=== PATIENT | male | born 1955 | race Caucasian/White ===

== ENCOUNTER 2023-03-16 08:46 | Inpatient (IN) ==
--- NOTE | 2023-03-10 12:07 | Anesthesiology Consultation ---
Date of Service March 10, 2023 Assessment & Plan (1) Encounter for pre-operative examination: Chart Review Chart Review: Acceptable Risk for Surgery and Patient NOT seen in Pre Admission Testing -COVID screening: Per PAT nursing assessment on 03/10/23. No known COVID-19 positive contacts or current COVID-19 related symptoms. Travel screen negative. Patient vaccinated for Covid. At surgeon discretion if preop Covid testing being done. History Surgery Operation Date: 03/16/23 09:30 Proposed Procedures p TURP (Transurethral Resection Prostate) - Cedrick Srinivasan MD Height/Weight Height: 5 ft 8 in Weight: 86.183 kg Allergies Allergy/AdvReac Type Severity Reaction Status Date / Time ciprofloxacin Allergy Unknown blisters, Unverified 03/10/23 09:02 rash amoxicillin AdvReac Unknown Gastrointestinal Unverified 03/10/23 09:02 Upset Penicillins AdvReac Unknown Gastrointestinal Unverified 03/10/23 09:02 Upset myrbetriq AdvReac Unknown Gastrointestinal Uncoded 03/10/23 09:02 Upset statin AdvReac Unknown Gastrointestinal Uncoded 03/10/23 09:02 Upset Medications Home Medications Medication Instructions Recorded Confirmed Last Taken No Known Home Medications 03/10/23 03/10/23 Unknown Past Medical History Medical History Bipolar disorder Pt denies bipolar disorder since undergoing "shock therapy BPH (benign prostatic hyperplasia) COPD (chronic obstructive pulmonary disease) Fibromyalgia History of anesthesia reaction woke up during nasal surgery History of hyperlipidemia resolved per pt History of hypertension resolved per pt Past Family History Family History Other No family history of adverse response to anesthesia Past Surgical History Surgical History History of cataract surgery History of colonoscopy History of cystoscopy History of nasal surgery History of removal of cyst Social History Smoking Status: Former smoker Do You Dip or Chew Tobacco: No Smoking End Date: 25 years ago Hx Alcohol Use: Yes alcohol intake frequency: a few times a month Hx Substance Use: No substance use type: does not use Testing Laboratory Results 03/09/23= WBC: 7.7 H/H: 15.5/45.5 PLATELETS: 223 SODIUM: 139 POTASSIUM: 4.1 CHLORIDE: 108 CO2: 29 BUN: 34 CREATININE: 1.0 GLUCOSE: 95 URINE CULTURE: No growth after 24 hours Electrocardiogram Date: 03/09/23 Findings: + NSR @ (89 bpm) Clinical correlation needed per confirming provider Chest X-Ray Date: 03/09/23 Findings: + NAD Stable mild emphysematous appearing changes with scarring at the right lung base. No focal consolidations, effusions, pneumothoraces. Heart size and vascular markings are appropriate for degree of inspiration and technique. Slight dextroscoliosis and degenerative changes are noted in the mid thoracic region, bony structures are otherwise unremarkable.
[~2023-03-16 08:46] MED LIST: ceFAZolin 2000MG 2,000 MG/15 ML SYR IV SCH
[2023-03-16] MEDS: LR 15ML/HR IV SCH ×2 (09:55→16:47)
[2023-03-16] MEDS ORDERED: ATROPINE SULFATE 0.1 MG/ML 10ML SYR IV PRN (10:27)
[2023-03-16] MEDS ORDERED: ONDANSETRON INJ 2 MG/ML 2 ML VIAL IV PRN (10:27)
[2023-03-16] MEDS ORDERED: HYDROmorphone INJ 1 MG/ML SYRINGE IV PRN (10:27)
[2023-03-16] MEDS ORDERED: ePHEDrine sulfate 50 MG/ML AMP IV PRN (10:27)
[2023-03-16] MEDS ORDERED: BELLADONNA/OPIUM SUPP 60 MG SUPP PR PRN (10:36)
[2023-03-16] MEDS ORDERED: ACETAMINOPHEN 325 MG TAB PO PRN ×3 (10:36→17:12)
--- NOTE | 2023-03-16 10:36 | History & Physical Bridge Note ---
Date of Service March 16, 2023 History & Physical Bridge Note I have examined the patient, reviewed the History & Physical and in the interval since the performance of the History & Physical I have noted the following changes of clinical significance: no changes noted
[2023-03-16] MEDS ORDERED: fentaNYL citrate PF 100 MCG/2 ML VIAL ONE (10:54)
[2023-03-16] MEDS ORDERED: MIDAZOLAM HCL 1 MG/ML 2ML VIAL ONE (10:54)
[2023-03-16] MEDS ORDERED: DEXAMETHASONE SOD INJ 4 MG/ML VIAL ONE (10:54)
[2023-03-16] MEDS ORDERED: PROPOFOL IV EMULSION 10 MG/ML 20 ML VIAL IV ONE (10:54)
[2023-03-16] MEDS ORDERED: LIDOCAINE 2% 2 ML VIAL/AMP(20MG/ML) INFIL ONE (10:54)
[2023-03-16] MEDS ORDERED: ONDANSETRON INJ 2 MG/ML 2 ML VIAL ONE (10:54)
--- NOTE | 2023-03-16 12:15 | Operative Report ---
[facility] Post Operative Report Pre & Post Diagnosis Operation Date: 03/16/23 10:50 Pre-Op Diagnosis: Benign Prostatic Hyperplasia with Obstruction/Lower urinary tract symptoms Post-Op Diagnosis: Benign Prostatic Hyperplasia with Obstruction/Lower urinary tract symptoms I identified the patient and participated in the time-out.: Yes Procedure Operation Date: 03/16/23 10:50 Actual Procedures p Transurethral Resection of the Prostate - Cedrick Srinivasan MD Surgeon Cedrick Srinivasan MD Ferry Engineer None Estimated Blood Loss 20 Findings Consistent with Post-Op Diagnosis Specimens Prostate chips Drains 22 [place]ic three-way Mercer catheter per urethra, continuous bladder irrigation running Anesthesia Type General Complications none Disposition Accompanied Patient To Recovery: Yes Disposition: Recovery Room Indications This is a 67-year-old male recently seen in the urology office for elevated PSA and lower urinary tract symptoms/BPH. Prostate biopsy was negative for malignancy. He is being brought to the OR today for transurethral resection of the prostate to help with his bladder outlet. Description of Procedure The patient was identified in the holding area and informed consent was confirmed. He was taken to the operating room where general anesthesia was initiated. He was placed in the dorsal lithotomy position with all pressure points appropriately padded. He was prepped and draped in the usual sterile fashion and a preoperative timeout was performed. A well-lubricated resectoscope was inserted per urethra and panendoscopy was performed. His pendulous urethra was normal with no strictures or mucosal abnormalities. The prostate was moderately enlarged with some intravesical protrusion. Ureteral orifices were in orthotopic position, somewhat removed from the bladder neck. The prostate was systematically resected, starting with the median lobe, taking resection down until the capsular fibers could be identified. The proximal resection was up to the bladder neck, taking care not to injure the ureteral orifices. The distal resection extended to the verumontanum, taking care to avoid the sphincter. The lateral lobes were then resected down to the level of the capsule. Meticulous hemostasis was obtained using the button electrode. The prostate chips were evacuated from the bladder and sent for pathologic analysis. A final inspection demonstrated no injury to the ureteral orifices or the sphincter, no remaining prostate chips, and good hemostasis at low pressure. A 22 Fr 3-way mercer catheter was placed. The balloon was inflated with 20 mL of normal saline and the catheter was attached to gravity drainage with continuous irrigation running. The patient was then awakened from anesthesia and was brought to the PACU in stable condition. I attest to the content of the Intraoperative Record and any orders documented therein. Any exceptions are noted below.
[2023-03-16] MEDS: fentaNYL citrate PF 100 MCG/2 ML VIAL IV PRN ×4 (12:31→13:04)
[2023-03-16] MEDS ORDERED: DOCUSATE SODIUM 100 MG CAP PO PRN (13:08)
--- NOTE | 2023-03-16 14:36 | Anesthesiology Progress Note ---
Date of Service March 16, 2023 Anesthesia Post Procedure Vital Signs Vital Signs: Temp Pulse Pulse Resp BP Pulse Ox O2 Del Method 03/16/23 14:00 59 L 14 114/84 95 Room Air 03/16/23 13:45 60 14 140/94 95 Room Air 03/16/23 13:30 36.2 C L 94 H 16 145/92 H 94 Room Air 03/16/23 13:15 59 L 12 156/98 H 95 Room Air 03/16/23 13:05 60 12 155/87 H 95 Room Air 03/16/23 12:55 65 12 155/84 H 95 Room Air 03/16/23 12:45 56 L 12 122/93 100 Room Air 03/16/23 12:35 57 L 14 162/94 H 97 Oxymask 03/16/23 12:26 36.5 C 62 16 151/85 H 98 Oxymask 03/16/23 09:28 36.6 C 67 20 142/92 H 97 Room Air O2 Flow Rate 03/16/23 14:00 03/16/23 13:45 03/16/23 13:30 03/16/23 13:15 03/16/23 13:05 03/16/23 12:55 03/16/23 12:45 03/16/23 12:35 7 03/16/23 12:26 7 03/16/23 09:28 Pain Intensity Penis: Pain Intensity: 3 Transfer of Care Handoff Completed per policy Notes Mental Status: alert / awake / arousable and participated in evaluation Patient Amnestic to Procedure: Yes Nausea / Vomiting: adequately controlled Pain: adequately controlled Airway Patency, RR, SpO2: stable & adequate BP & HR: stable & adequate Hydration State: stable & adequate Anesthetic Complications: no major complications apparent and Pt Satisfied with anesthetic care
[2023-03-16] MEDS ORDERED: PHENAZOPYRIDINE HCL 200 MG TAB PO PRN (17:11)
[2023-03-16] MEDS ORDERED: IBUPROFEN 200 MG TAB PO PRN (17:11)
[2023-03-16] MEDS: LACTATED RINGER'S 1,000 ML IV SCH (17:38)
[2023-03-16] MEDS: oxyCODONE HCL IR 5 MG TAB (IMMEDIATE RELEASE) PO PRN (17:51)
[2023-03-16] MEDS: ceFAZolin 1000MG 1,000 MG/7.5 ML SYR IV SCH (19:57)
[2023-03-17] MEDS: LACTATED RINGER'S 1,000 ML IV SCH ×2 (00:19→08:46)
[2023-03-17] MEDS: ceFAZolin 1000MG 1,000 MG/7.5 ML SYR IV SCH (02:14)
[2023-03-17] MEDS: oxyCODONE HCL IR 5 MG TAB (IMMEDIATE RELEASE) PO PRN (02:14)
--- NOTE | 2023-03-17 07:33 | Urology Progress Note ---
I have discussed Mr. Holder's case with SHANNON Posadas and agree with the above documentation. Urine has cleared on CBI overnight. He is doing well s/p TURP and ready for discharge today. We will maintain his catheter for another couple days and have a voiding trial in the office later this week. -Cedrick Srinivasan MD. Date of Service March 17, 2023 Assessment & Plan (1) BPH with obstruction/lower urinary tract symptoms: Plan: - Pt POD#1 s/p TURP with Dr. Srinivasan - Doing well, progressing as expected - Afebrile with stable vitals - Tolerating PO diet - 3 way Chappell catheter patent and draining clear yellow urine with CBI on slow - CBI clamped @0710 - will reassess later this AM - Anticipate home later today presuming urine appropriate and he continues to progress as expected - Will discharge with course of PO antibiotics - Expected clinical course reviewed, all questions answered - Outpatient follow-ups in place Admission and Anticipated Discharge Date Admission Date: March 16, 2023 Subjective Patient seen and examined at bedside this morning. No issues overnight. Subjectively feeling well. Denies pain. Notes mild discomfort at catheter insertion site. Chappell patent and draining clear urine with CBI on slow drip. CBI clamped at 0710. Tolerating diet. No nausea or vomiting. No fever or chills. Review of Systems Constitutional: as per Subjective / HPI Gastrointestinal: as per Subjective / HPI Genitourinary: + as per Subjective / HPI Physical Exam Constitutional: well developed and well nourished; no acute distress Respiratory: normal respiratory effort; no respiratory distress and no labored breathing Gastrointestinal (Abdomen): Inspection/Auscultation: abdomen normal to inspection; abdomen not distended Psychiatric: Orientation: alert and oriented x 3 Genitourinary: Chappell patent and draining clear urine with CBI on slow drip. CBI clamped at 0710. Results & Data Vital Signs (Past 12 Hours) Vital Signs Temp Pulse Resp BP BP Pulse Ox O2 Del Method 03/17/23 03:39 36.6 C 57 L 16 131/79 93 Room Air 03/17/23 00:36 36.4 C 60 18 126/58 L 93 Room Air 03/16/23 21:00 37 C 84 22 122/62 97 Room Air PG Care Time/CCT Total # of Minutes Spent Total Time Spent with Patient: Total time spent is greater than 50% in coordination of care (as documented) at patient's floor/unit and/or counseling patient: Coding Level of Care Code None Diagnoses BPH with obstruction/lower urinary tract symptoms N40.1; N13.8
--- NOTE | 2023-03-17 08:12 | Discharge Summary ---
Date of Service March 17, 2023 Admission HPI Per Admitting Provider This is a 67-year-old male recently seen in the urology office for elevated PSA and lower urinary tract symptoms/BPH. Prostate biopsy was negative for malignancy. He is being brought to the OR today for transurethral resection of the prostate to help with his bladder outlet. Admission Exam Per Admitting Provider Constitutional well developed and well nourished; no acute distress Eyes + anicteric sclerae; pupils not irregular Respiratory normal respiratory effort; no respiratory distress, does not use accessory muscles and no cough Cardiovascular well perfused Gastrointestinal (Abdomen) Inspection/Auscultation: abdomen normal to inspection; abdomen not distended Musculoskeletal Extremities: extremities normal to inspection Skin normal turgor; no rashes and no lesions Neurologic moves all extremities and awake Psychiatric Orientation: alert and oriented x 3 Principal Diagnosis BPH with obstruction/lower urinary tract symptoms Discharge Exam Constitutional well developed and well nourished; no acute distress Respiratory normal respiratory effort; no respiratory distress and no labored breathing Gastrointestinal (Abdomen) Inspection/Auscultation: abdomen normal to inspection; abdomen not distended Musculoskeletal Head/Neck/Chest: normocephalic and head atraumatic Psychiatric Orientation: alert and oriented x 3 Genitourinary Chappell patent and draining clear yellow urine with CBI on slow drip. CBI clamped at 0710. Discharge Data Allergies Allergy/AdvReac Type Severity Reaction Status Date / Time ciprofloxacin Allergy Unknown blisters, Verified 03/16/23 09:34 rash amoxicillin AdvReac Unknown Gastrointestinal Verified 03/16/23 09:34 Upset Penicillins AdvReac Unknown Gastrointestinal Verified 03/16/23 09:34 Upset myrbetriq AdvReac Unknown Gastrointestinal Uncoded 03/16/23 09:34 Upset statin AdvReac Unknown Gastrointestinal Uncoded 03/16/23 09:34 Upset Procedures Performed Operation Date: 03/16/23 10:50 Actual Procedures p Transurethral Resection of the Prostate(Not Applicable) - Cedrick Srinivasan MD Hospital Course (1) BPH with obstruction/lower urinary tract symptoms: - Pt POD#1 s/p TURP with Dr. Srinivasan - Doing well, progressing as expected - Afebrile with stable vitals - Tolerating PO diet - 3 way Chappell catheter patent and draining clear yellow urine with CBI on slow - CBI clamped @0710 - will reassess later this AM - Anticipate home later with Chappell catheter today presuming urine appropriate and he continues to progress as expected - Will discharge with course of PO antibiotics - Expected clinical course reviewed, all questions answered - Outpatient follow-ups in place - Patient reassessed and ready for discharge now, orders placed Total Time Total Time Spent Total Time Spent (In Minutes): 29 Discharge Plan Discharge Items Patient Disposition: Home - Self-Care Reason For Visit: BPH Discharge Diagnosis: BPH Activity: Per Instructions section Lifting: No more than 25 pounds Bathing Comment: Okay to shower after discharge Sexual Activity: Wait until after follow-up appointment Exercise/Sports: Wait until after follow-up appointment Driving/Machine Use: Resume 1 day after discharge Non-emergency contact: Surgeon and Urologist Call non-emergency contact if: your pain is not controlled and your temperature is above 101 Follow-up/Referrals: Cedrick Srinivasan MD [Physician] - 04/27/23 10:20 am César Mayberry [Primary Care Provider] - [facility],Nurse [FAKE FOR SCHEDULES] - 03/19/23 8:30 am Diet: Regular Addtl Attending Provider Instructions: The surgery you had was TURP (Trans-urethral resection of the prostate) Please take all medications as prescribed and keep all follow-ups as scheduled. Please call our office at [phone] with any questions, concerns or need to reschedule appointments for any reason. We are happy to assist you. Medications: -Please resume your normal medications as previously prescribed. -Take a stool softener such as colace or Miralax to keep your stool soft. The goal is one soft bowel movement daily. -For pain, it is ok to take tylenol. You can also try pyridium (also known as AZO). This can be gotten [id number]. It turns your urine a bright orange color. -You have been prescribed an antibiotic (Augmentin). Please take this twice daily for the next 5 days. Activity: -Avoid straining or bearing down for the next 1-2 weeks. This can cause or increase bleeding. Avoiding straining to have bowel movements. -If you notice blood in your urine, try to remain well-hydrated to keep the urine dilute. -For the next 2 weeks, avoid activities that put pressure on your perineum (area behind the scrotum), such as riding a bike. What to expect after your procedure: -If a catheter was left in place, we will have you come to the office in the next couple days to remove it. -You may notice some blood in your urine. As long as your catheter is draining, this is ok. -You may have increased urinary frequency and urgency; this should improve with time. -You may notice some urinary leaking, especially with coughing/sneezing/bearing down. This should improve with time. When to call [facility] at [phone]: Fever of 101F or higher Heavy bleeding Pain that is not controlled with medicine Uncontrolled vomiting Problems urinating or inability to urinate Our office will call to schedule an appointment for catheter removal. Pending Studies at Discharge: No Stand-Alone Forms: My [facility] Medications and DC Order Prescriptions: New amoxicillin-pot clavulanate [Augmentin] 500-125 mg tablet 1 tab PO Q12H Qty: 10 0RF Discharge Orders: Discharge Order (Routine); Ordered 03/17/23 Ordered By: Helen Berg Admission Data Admit Date/Time: 03/16/23 13:08 Attending Provider: Cedrick Srinivasan Admit Provider: Cedrick Srinivasan Primary Care Provider: César Mayberry Coding Level of Care Code 71173 IN/OBS DISCH 30 MIN/LESS Diagnoses BPH with obstruction/lower urinary tract symptoms N40.1; N13.8 Time Spent (min) 29
== END 2023-03-17 10:02 | disposition home or self-care (01) | DRG 714 ==
LOC: ASU 08:46 → OBSVTOIN 13:08 → INTOOBSV 13:08 → 3N 13:08